=== PATIENT | female | born 1945 | race Caucasian/White ===

== ENCOUNTER 2018-06-26 23:25 | Emergency (ER) | payer OTHER, MEDICAID ==
[~2018-06-26] VITALS: Ht 152.4 cm; Wt 62.6 kg
[2018-06-26 23:30] VITALS: Ht 152.4 cm; Wt 62.6 kg
[2018-06-27 02:35] VITALS: BP 152/59
== END 2018-06-27 02:36 | disposition left against medical advice (07) ==
LOC: ED 23:25
DX: E11.649 Type 2 diabetes mellitus with hypoglycemia without coma (principal); I10 Essential (primary) hypertension; M19.90 Unspecified osteoarthritis, unspecified site
CPT/HCPCS: 82962